=== PATIENT | male | born 1995 | race American Indian/Alaskan Native ===

== ENCOUNTER 2019-04-16 16:22 | Emergency (ER) | payer SELFPAY ==
[2019-04-16 17:00] VITALS: BP 132/86
--- NOTE | 2019-04-16 17:03 | Emergency Department Report ---
Chief Complaint: Urogenital-Male Stated Complaint: STD - HPI History of Present Illness: 24 yo male presents wanting std screening and treatment stating his was tested and positive for chlamydia Denies scrotal pain and swelling , fever, penile d/c - ROS Review of Systems: noted in HPI - Exam Vital Signs: Vital Signs 04/16/19 16:56 Temperature 98.3 F Pulse Rate 65 Respiratory 18 Rate Blood Pressure 132/86 O2 Sat by Pulse 99 Oximetry Physical Exam: GEN: AAO x 3, no acute distress MSE screening note: Focused history and physical exam performed. Due to findings the following was ordered: ED Medical Decision Making - Medical Decision Making 24 y o male presents for STD screening with no symptoms Discussed with pt to follow ip with [facility], referrals given to pt Pt understands instructions no other sx or distress ED Disposition for MSE Clinical Impression: STD exposure Disposition: MED SCREENING EXAM-LEFT Is pt being admited?: No Does the pt Need Aspirin: No Condition: Stable Instructions: Chlamydia Infection (ED) Additional Instructions: follow up with [facility] for std screening and testing Referrals: [facility] [Outside] - 3-5 Days [facility] [Outside] - 3-5 Days Forms: Work/School Release Form(ED) Time of Disposition: 17:02
== END 2019-04-16 17:45 | disposition left against medical advice (07) ==
LOC: ED 16:22
DX: Z20.2 Contact with and (suspected) exposure to infections with a predominantly sexual mode of transmission (principal); Z91.010 Allergy to peanuts
CPT/HCPCS: 99281